=== PATIENT | female | born 2000 | race Caucasian/White ===

== ENCOUNTER 2024-07-01 06:30 | Inpatient (IN) ==
[2024-07-01] MEDS ORDERED: ZOFRAN INJ 4 MG VIAL IVP PRN (06:45)
[2024-07-01] MEDS ORDERED: REGLAN INJ 10 MG VIAL IVP PRN (06:45)
[2024-07-01] MEDS: D5 1/2 NS 1,000 ML 1,000 ML IV SCH (07:00)
[2024-07-01 07:14] LABS: HEMOGLOBIN 11.2 g/dL (12.0-16.0); MEAN PLATELET VOLUME 8.5 fL (7.4-11.0)
[2024-07-01] MEDS: NS 100 ML IV 100 ML ONE ×3 (07:15→15:15)
[2024-07-01] MEDS: OXYTOCIN 20 UNIT/1,000 ML-NS 20 UNIT/1,000 ML PLAST..BAG IV PRN (07:15)
[2024-07-01] MEDS: AMPICILLIN VIAL 2 GRAM 2 G in NS 100 ML IV + SPIKE MINIBAG* 100 ML IV SCH (07:15)
[2024-07-01 07:17] LABS: BASOPHILS # (AUTO) 0.1 X10^3/uL (0.0-0.1); BASOPHILS % (AUTO) 0.9 % (0.2-1.0); EOSINOPHILS # (AUTO) 0.1 x10^3/uL (0.0-0.2); EOSINOPHILS % (AUTO) 0.4 % (0.9-2.9); HEMATOCRIT 32.8 % (36.0-47.0); LYMPHOCYTES % (AUTO) 22.5 % (21.0-51.0); MEAN CORPUSCULAR HEMOGLOBIN 27.2 pg (27.0-34.0); MONOCYTES # (AUTO) 0.7 x10^3/uL (0.3-0.8); MONOCYTES % (AUTO) 5.7 % (0.0-13.0); NEUTROPHILS # (AUTO) 9.2 x10^3/uL (2.2-4.8); NEUTROPHILS % (AUTO) 70.5 % (42.0-75.0); PLATELET COUNT 245 X10^3/uL (150.0-450.0); RED CELL DISTRIBUTION WIDTH 14.6 % (11.6-16.5); WHITE BLOOD COUNT 13.1 X10^3/uL (3.6-10.0)
--- NOTE | 2024-07-01 07:19 | DR.OB ---
OB QUICK NOTE Assessment/Plan (1) Elective induction of labor planned: (2) induced hypertension: Assessment/Plan: L&D 07/01/24 at 7:15am S-No complaint. O-Afebrile,VSS FOY=563 with good LTV, +accel, no decel. CTX=none CVX=3cm/50%/-1/VTX AROM with clear fluid. IUPC and FSE placed. A-IUP at 38 4/7 weeks for induction PIH +GBS P-Begin pitocin induction IV ABX in labor for +GBS F/U labs Anticipate
[2024-07-01 07:27] LABS: INR 0.99 (0.8-1.3)
[2024-07-01 07:36] LABS: ALANINE AMINOTRANSFERASE 14 Units/L (12-78); ASPARTATE AMINO TRANSFERASE 18 Units/L (15-37); BLOOD UREA NITROGEN 8 mg/dL (7-18); CALCIUM 8.5 mg/dL (8.5-10.1); CARBON DIOXIDE 21.9 mmol/L (21-32); CHLORIDE 101 mmol/L (98-107); CREATININE 0.55 mg/dL (0.55-1.02); GLUCOSE 86 mg/dL (65-99); LACTATE DEHYDROGENASE 226 Units/L (81-234); SODIUM 134 mmol/L (136-145); URIC ACID 4.4 mg/dL (2.6-6.0); eGFR NON BLACK RACES > 60 (>60)
[2024-07-01] MEDS: AMPICILLIN VIAL 2 GRAM ONE (08:00)
[2024-07-01] MEDS: D5 1/2 NS 1,000 ML 1,000 ML IV ONE (08:00)
[2024-07-01] MEDS: PITOCIN ONE (09:03)
[2024-07-01] MEDS: NUBAIN INJ 20 MG AMP IVP PRN (10:05)
[2024-07-01] MEDS: AMPICILLIN VIAL 1 GRAM 1 G in NS 50 ML IV 50 ML IV SCH (11:15)
[2024-07-01] MEDS: LR 1,000 ML IV 1,000 ML IV ONE (11:25)
--- NOTE | 2024-07-01 11:54 | DR.OB ---
OB QUICK NOTE Assessment/Plan (1) Elective induction of labor planned: (2) induced hypertension: Assessment/Plan: L&D 07/01/24 at 11:50am Pitocin=16mu/min. S-No complaint except CTX pain. O-Afebrile,VSS QXU=705 with good LTV, +accel, no decel. CTX=q 1 1/2 to 2 min., about 55-60mmHg CVX=5cm/75%/0 A-IUP 38 4/7 weeks for induction PIH +GBS anxiety P-Cont. pitocin induction Anticipate
[2024-07-01] MEDS: FENTANYL VIAL INJ 100 mcg ONE (12:27)
[2024-07-01] MEDS: NAROPIN EPIDURAL 0.2% 100 ML ONE (12:27)
[2024-07-01] MEDS: AMPICILLIN VIAL 1 GRAM ONE ×2 (15:16→15:50)
[2024-07-01] MEDS: MARCAINE 0.25% INJ ONE (15:40)
[2024-07-01] MEDS: NUBAIN INJ 10 MG AMP ONE (15:51)
[2024-07-01] MEDS: BETADINE SOLN ONE (19:00)
[2024-07-01] MEDS: PITOCIN IVP ONE (19:55)
--- NOTE | 2024-07-01 20:02 | DR.OB ---
OB QUICK NOTE Assessment/Plan (1) Elective induction of labor planned: (2) induced hypertension: Assessment/Plan: Delivery Note THERMODYNAMIC PHYSICIST 07/01/24 at 7:45pm Patient complete and pushing. Head delivered over intact perineum. No nuchal cord. Nose and mouth bulb suctioned. Body delivered over intact perineum. Cord clamped x 2 and cut. handed to attendant. Cord sent for gases. Placenta delivered spontaneously / intact / 3 vessel cord. No CVX / vaginal / perineal tears noted. Viable female infant delivered by , VTX/OA, 7/9 and wt=7'13", stable to NBN. Mother stable to RR. VYQ=[id number].
[2024-07-01] MEDS ORDERED: MOTRIN TAB 800 MG PO PRN (20:30)
[2024-07-01] MEDS ORDERED: MILK OF MAGNESIA PO PRN (20:30)
[2024-07-01] MEDS ORDERED: AMBIEN PO PRN (20:30)
[2024-07-01] MEDS ORDERED: DERMOPLAST PAIN RELIEF SPRAY TOP PRN (20:30)
[2024-07-01] MEDS: OXYTOCIN 20 UNIT/1,000 ML-NS 20 UNIT/1,000 ML PLAST..BAG IV SCH (21:12)
[2024-07-01] MEDS: MOTRIN TAB 800 MG PO PRN (22:13)
[2024-07-02 05:27] LABS: HEMOGLOBIN 10.1 g/dL (12.0-16.0)
[2024-07-02] MEDS: VSL#3 PROBIOTIC CAP 112.5 B PO SCH (08:00)
[2024-07-02] MEDS: CELEXA PO SCH (08:34)
[2024-07-02] MEDS: PRENATAL PLUS PO SCH (08:34)
[2024-07-02] MEDS: OXYTOCIN 20 UNIT/1,000 ML-NS 20 UNIT/1,000 ML PLAST..BAG IV SCH (14:22)
[2024-07-02] MEDS: ADACEL or BOOSTRIX TDaP VACCINE IM ONE (16:19)
[2024-07-03 00:09] VITALS: RESP 18
[2024-07-03 05:06] VITALS: O2SAT 97
[2024-07-03 07:46] VITALS: BP 159/88; PULSE 98; TEMP 98.1
== END 2024-07-03 10:00 | disposition home or self-care (01) | DRG 806 ==
LOC: LD 06:31 → MED/SURG 21:10
PROVIDERS: ADMIT Specialist; ATTEND Specialist